=== PATIENT | female | born 1955 | race Caucasian/White ===

== ENCOUNTER 2018-01-24 17:32 | Emergency (ER) | payer BC ==
[2018-01-24 17:46] VITALS: BP 169/98
--- NOTE | 2018-01-24 18:02 | UC ---
Abdominal Pain Female HPI - HPI Summary HPI Summary: 62 year old woman 62-year-old woman here with a chief complaint of upper abdominal pain. She's been having the pain on and off for 2 days. Right now the pain is severe. He's nauseous she did vomit once that did not help the pain. No fevers. He said no prior abdominal surgeries. - History of Current Complaint Chief Complaint: UCAbdominalPain Stated Complaint: PAIN STOMACH Time Seen by Provider: 01/24/18 17:51 Pain Intensity: 7 Allergies/Adverse Reactions: Allergies Allergy/AdvReac Type Severity Reaction Status Date / Time No Known Allergies Allergy Verified 01/24/18 17:47 Home Medications: Home Medications NK [No Home Medications Reported] 01/24/18 [History Confirmed 01/24/18] PMH/Surg Hx/FS Hx/Imm Hx Previously Healthy: Yes - Surgical History Surgical History: None - Family History Known Family History: Positive: Non-Contributory - Social History Alcohol Use: None Substance Use Type: None Smoking Status (MU): Never Smoked Tobacco Review of Systems All Other Systems Reviewed And Are Negative: Yes Constitutional: Positive: Negative Skin: Positive: Negative Eyes: Positive: Negative ENT: Positive: Negative Respiratory: Positive: Negative Cardiovascular: Positive: Negative Gastrointestinal: Positive: Abdominal Pain, Vomiting, Nausea Motor: Positive: Negative Neurovascular: Positive: Negative Musculoskeletal: Positive: Negative Neurological: Positive: Negative Psychological: Positive: Negative Is Patient Immunocompromised?: No Physical Exam Triage Information Reviewed: Yes Appearance: Well-Nourished, Ill-Appearing - MODERATE, Pain Distress - MODERATE Vital Signs: Initial Vital Signs Temp 99.0 F 01/24/18 17:44 Pulse 74 01/24/18 17:44 Resp 16 01/24/18 17:44 BP 169/98 01/24/18 17:44 Pulse Ox 100 01/24/18 17:44 Vital Signs Reviewed: Yes Eye Exam: Normal Eyes: Positive: Conjunctiva Clear Neck exam: Normal Neck: Positive: Supple Respiratory: Positive: Lungs clear, Normal breath sounds, No respiratory distress, No accessory muscle use Cardiovascular: Positive: RRR Abdomen Description: Positive: Guarding, Other: - Patient's abdomen is tender all throughout the upper abdomen and the lower abdomen worst pain is in the epigastrium Bowel Sounds: Positive: Hypoactive Musculoskeletal Exam: Normal Musculoskeletal: Positive: Strength Intact, ROM Intact Neurological Exam: Normal Neurological: Positive: Alert, Muscle Tone Normal Psychological Exam: Normal Psychological: Positive: Age Appropriate Behavior Skin Exam: Normal Abd Pain Female Course/Dx - Differential Dx/Diagnosis Provider Diagnoses: ABDOMINAL PAIN. EPIGASTRIC PAIN Discharge - Sign-Out/Discharge Documenting (check all that apply): Patient Departure All imaging exams completed and their final reports reviewed: No Studies - Discharge Plan Condition: Stable Disposition: HOME-RECOMMEND TO ED Patient Education Materials: Acute Abdominal Pain (ED), Epigastric Pain (ED) Referrals: [facility] [Outside] Additional Instructions: GO DIRECTLY TO THE EMERGENCY DEPARTMENT FOR FURTHER EVALUATION. - Billing Disposition and Condition Condition: STABLE Disposition: Home-Recommend to ED
== END 2018-01-24 18:14 | disposition home health service (06) ==
LOC: UCEAST 17:32
DX: R10.13 Epigastric pain (principal)
CPT/HCPCS: 99202; G0463

== ENCOUNTER 2018-01-24 18:31 | Emergency (ER) | payer BC ==
[2018-01-24 21:25] LABS: ABS Basophils 0.1 10^3/ul (0-0.2); ABS Eosinophils 0 10^3/ul (0-0.6); ABS Lymphocytes 0.7 10^3/ul (1.0-4.8); ABS Monocytes 0.6 10^3/ul (0-0.8); ABS Neutrophils 9.8 10^3/ul (1.5-7.7); ABS Nucleated RBC 0.1 10^3/ul; Eosinophil % 0.1 % (0-6); Hematocrit 47 % (35-47); Hemoglobin 16.4 g/dl (12.0-16.0); Lymphocyte % 6.5 % (25-47); Mean Corpuscular HGB Conc 35 g/dl (31-36); Mean Corpuscular Hemoglobin 30 pg (27-31); Mean Corpuscular Volume 86 fL (80-97); Mean Platelet Volume 7.2 fL (7.4-10.4); Nucleated Red Blood Cells % 0.6; Platelet Count 440 10^3/ul (150-450); Red Blood Count 5.44 10^6/ul (4.00-5.40); Red Cell Distribution Width 13 % (10.5-15); White Blood Count 11.1 10^3/ul (3.5-10.8)
[2018-01-24 21:42] LABS: EGFR Non-African American 55.2 (>60)
--- NOTE | 2018-01-24 22:46 | ED ---
Abdominal Pain/Female - HPI Summary HPI Summary: This patient is a 62 year old F presenting to [facility] from [facility] with a chief complaint of waxing, wanning, and migratory abdominal pain beginning two nights ago. Patient reports after dinner to nights ago nausea and left sided abdominal pain developed that improved Friday morning, but returned at 1400 the next day with sharp right sided abdominal pain with nausea. Today abdominal pain is central and radiates to lateral upper abdomen. Pain is 8/10 at worst and 5/10 at best. Patient reports decreased appetite. Patient denies vomiting, diarrhea, back pain and known fever. - History of Current Complaint Chief Complaint: EDAbdPain Stated Complaint: ABD PAIN Time Seen by Provider: 01/24/18 22:37 Hx Obtained From: Patient ?: No Onset/Duration: Lasting Days Timing: Intermittent Episode Lasting Pain Intensity: 5 Pain Scale Used: 0-10 Numeric Location: Diffuse Radiates: Yes Radiates to: LLQ, RLQ Character: Sharp Associated Signs and Symptoms: Positive: Decreased Appetite, Nausea. Negative: Fever, Back Pain Allergies/Adverse Reactions: Allergies Allergy/AdvReac Type Severity Reaction Status Date / Time No Known Allergies Allergy Verified 01/24/18 17:47 PMH/Surg Hx/FS Hx/Imm Hx Cardiovascular History: Denies: Hx Coronary Artery Disease GI History: Denies: Hx Diverticulosis, Hx Ulcer EENT History: Denies: Hx Deafness - Surgical History Surgery Procedure, Year, and Place: DNC Hx Anesthesia Reactions: No Infectious Disease History: No Infectious Disease History: Denies: Traveled Outside the [place] in Last 30 Days - Family History Known Family History: Positive: Hypertension - Social History Alcohol Use: None Substance Use Type: Reports: None Smoking Status (MU): Never Smoked Tobacco Review of Systems Negative: Fever Gastrointestinal: Other - decreased appetite Positive: Abdominal Pain, Nausea. Negative: Vomiting, Diarrhea All Other Systems Reviewed And Are Negative: Yes Physical Exam - Summary Physical Exam Summary: Appearance: Well-appearing, Well-nourished, lying in bed comfortably Skin: Warm, dry, no obvious rash Eyes: sclera anicteric, no conjunctival pallor ENT: mucous membranes moist, pharynx appears normal Neck: Supple, nontender Respiratory: Clear to auscultation, no signs of respiratory distress Cardiovascular: Normal S1, S2. No murmurs. Normal distal pulses in tibial and radial bilaterally. Mildly tachycardic at 100 BPM Abdomen: Soft, diffuse tenderness without guarding or rebound, normal active bowel sounds present Musculoskeletal: Normal, Strength/ROM Intact Neurological: A&Ox3, awake and alert, mentation is normal, speech is fluent and appropriate Psychiatric: affect is normal, does not appear anxious or depressed Triage Information Reviewed: Yes Vital Signs On Initial Exam: Initial Vitals Temp Pulse Resp BP Pulse Ox 98.1 F 72 16 158/85 100 01/24/18 18:38 01/24/18 18:38 01/24/18 18:38 01/24/18 18:38 01/24/18 18:38 Vital Signs Reviewed: Yes Diagnostics - Vital Signs Vital Signs Temp Pulse Resp BP Pulse Ox 01/24/18 20:41 97.6 F 81 16 149/76 100 01/24/18 18:38 98.1 F 72 16 158/85 100 - Laboratory Lab Results: Lab Results 01/24/18 01/24/18 Range/Units 21:20 21:20 WBC 11.1 H (3.5-10.8) 10^3/ul RBC 5.44 H (4.00-5.40) 10^6/ul Hgb 16.4 H (12.0-16.0) g/dl Hct 47 (35-47) % MCV 86 (80-97) fL MCH 30 (27-31) pg MCHC 35 (31-36) g/dl RDW 13 (10.5-15) % Plt Count 440 (150-450) 10^3/ul MPV 7.2 L (7.4-10.4) fL Neut % (Auto) 87.7 H (38-83) % Lymph % (Auto) 6.5 L (25-47) % Grand % (Auto) 5.2 (0-7) % Eos % (Auto) 0.1 (0-6) % Baso % (Auto) 0.5 (0-2) % Absolute Neuts (auto) 9.8 H (1.5-7.7) 10^3/ul Absolute Lymphs (auto) 0.7 L (1.0-4.8) 10^3/ul Absolute Monos (auto) 0.6 (0-0.8) 10^3/ul Absolute Eos (auto) 0 (0-0.6) 10^3/ul Absolute Basos (auto) 0.1 (0-0.2) 10^3/ul Absolute Nucleated RBC 0.1 10^3/ul Nucleated RBC % 0.6 Sodium 137 (135-145) mmol/L Potassium 4.4 (3.5-5.0) mmol/L Chloride 104 (101-111) mmol/L Carbon Dioxide 24 (22-32) mmol/L Anion Gap 9 (2-11) mmol/L BUN 19 (6-24) mg/dL Creatinine 1.01 H (0.51-0.95) mg/dL Est GFR ( Amer) 66.8 (>60) Est GFR (Non-Af Amer) 55.2 (>60) BUN/Creatinine Ratio 18.8 (8-20) Glucose 147 H (70-100) mg/dL Calcium 10.2 (8.6-10.3) mg/dL Total Bilirubin 0.90 (0.2-1.0) mg/dL AST 15 (13-39) U/L ALT 14 (7-52) U/L Alkaline Phosphatase 98 (34-104) U/L Total Protein 8.0 (6.4-8.9) g/dL Albumin 4.5 (3.2-5.2) g/dL Globulin 3.5 (2-4) g/dL Albumin/Globulin Ratio 1.3 (1-3) Lipase 16 (11.0-82.0) U/L Result Diagrams: 01/24/18 21:20 01/24/18 21:20 Lab Statement: Any lab studies that have been ordered have been reviewed, and results considered in the medical decision making process. - CT CT A/P CT Interpretation Completed By: Radiologist - 1. No CT findings to correlate with patient's symptomatology. 2. 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 ACR White Paper guidelines (Jaci, et al. JACR 2010; 7(10):759-82) suggest that no further follow-up is necessary. ED Physician has reviewed this report. Abdominal Pain Fem Course/Dx - Course Course Of Treatment: 62 year old F presenting from [facility] with a chief complaint of waxing, wanning, and migratory abdominal pain beginning two nights ago. Patient reports after dinner to nights ago nausea and left sided abdominal pain developed that improved Friday morning, but returned at 1400 the next day with sharp right sided abdominal pain with nausea. Today abdominal pain is central and radiates to lateral upper abdomen. Patient reports decreased appetite. Patient denies vomiting, diarrhea, back pain and known fever. Patient is given IVF and Zofran. Bloodwork reveals 11.1. UA is indicative of UTI. CT A/P reveals, as per radiologist, "1. No CT findings to correlate with patient's symptomatology. 2. 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 ACR White Paper guidelines (Jaci,. et al. JACR 2010; 7(10):705-42) suggest that no further follow-up is necessary. ". Results discussed with patient. Patient will be discharged home with a prescription for Bactrim. Patienet is agreeable with this plan. - Diagnoses Provider Diagnoses: UTI (urinary tract infection), Abdominal pain Discharge - Sign-Out/Discharge Documenting (check all that apply): Patient Departure - discharge - Discharge Plan Condition: Good Disposition: HOME Prescriptions: Sulfamethox/Trimethoprim DS* [Bactrim DS 800/160 TAB*] 1 tab PO BID #14 tab Patient Education Materials: Urinary Tract Infection in Women (ED), Abdominal Pain (ED) [facility]errals: [facility] [Outside] Additional Instructions: If the culprit here is a urinary tract infection, as the urine test would suggest, your symptoms should start to carmen over the next couple of days. If you are not feeling much better by Friday - Billing Disposition and Condition Condition: GOOD Disposition: Home - Attestation Statements Document Initiated by Scribe: Yes Documenting Scribe: Nathalia Carroll Provider For Whom Iram is Documenting (Include Credential): Joshua Graves MD Scribe Attestation: INathalia, scribed for Joshua Graves MD on 01/26/18 at 0050. Scribe Documentation Reviewed: Yes Provider Attestation: The documentation as recorded by the Nathalia magallon accurately reflects the service I personally performed and the decisions made by me, Joshua Graves MD
[2018-01-24] MEDS ORDERED: Ondansetron ODT TAB* 4 MG SL ONE (23:03)
[2018-01-24] MEDS ORDERED: NS 0.9% 1000 ML* 2,000 ML IV ONE (23:03)
[2018-01-25] MEDS ORDERED: Iodixanol* (CONTRAST) 320 MG/ML 100 ML SDV IV ONE (00:40)
[2018-01-25 00:50] LABS: Urine Appearance Turbid; Urine Blood 1+ (Negative); Urine Color Amber; Urine Ketones 1+ (Negative); Urine Protein 2+(100 mg/dL) (Negative); Urine Red Blood Cell 1+(3-5/hpf) (Absent); Urine Specific Gravity 1.026 (1.010-1.030); Urine Urobilinogen Negative (Negative); Urine White Blood Cell 3+(>20/hpf) (Absent)
[2018-01-25] MEDS ORDERED: Sulfamethox/Trimethoprim DS 800/160* TAB PO ONE (01:49)
[2018-01-25 02:46] VITALS: BP 164/97
--- NOTE | 2018-01-28 08:09 | ED ---
Progress - Progress Note Progress Note: Patient's final urine culture reveals greater than 100,000 Escherichia coli. Patient was started on Bactrim to which organism is sensitive. No change in treatment at this time. Course/Dx - Course Course Of Treatment: 62 year old F presenting from [facility] with a chief complaint of waxing, wanning, and migratory abdominal pain beginning two nights ago. Patient reports after dinner to nights ago nausea and left sided abdominal pain developed that improved Friday morning, but returned at 1400 the next day with sharp right sided abdominal pain with nausea. Today abdominal pain is central and radiates to lateral upper abdomen. Patient reports decreased appetite. Patient denies vomiting, diarrhea, back pain and known fever. Patient is given IVF and Zofran. Bloodwork reveals 11.1. UA is indicative of UTI. CT A/P reveals, as per radiologist, "1. No CT findings to correlate with patient's symptomatology. 2. 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 ACR White Paper guidelines (Jaci,. et al. JACR 2010; 7(10):754-72) suggest that no further follow-up is necessary. ". Results discussed with patient. Patient will be discharged home with a prescription for Bactrim. Patienet is agreeable with this plan. - Diagnoses Provider Diagnoses: UTI (urinary tract infection), Abdominal pain Discharge - Sign-Out/Discharge Documenting (check all that apply): Post-Discharge Follow Up - Discharge Plan Condition: Good Disposition: HOME Prescriptions: Sulfamethox/Trimethoprim DS* [Bactrim DS 800/160 TAB*] 1 tab PO BID #14 tab Patient Education Materials: Urinary Tract Infection in Women (ED), Abdominal Pain (ED) Referrals: [facility] [Outside] Additional Instructions: If the culprit here is a urinary tract infection, as the urine test would suggest, your symptoms should start to carmen over the next couple of days. If you are not feeling much better by Friday - Billing Disposition and Condition Condition: GOOD Disposition: Home
== END 2018-01-25 02:05 | disposition home or self-care (01) ==
LOC: ED 18:31
DX: N39.0 Urinary tract infection, site not specified (principal); B96.20 Unspecified Escherichia coli [E. coli] as the cause of diseases classified elsewhere; R10.32 Left lower quadrant pain; R10.31 Right lower quadrant pain; R11.0 Nausea
CPT/HCPCS: 36415; 74177; 80053; 81003; 81015; 83690; 85025; 87077; 87086; 87186; 96360; 99283; A9270-GY; Q9967

== ENCOUNTER 2018-01-28 09:41 | Observation (INO) | payer BC ==
[2018-01-28] MEDS ORDERED: Ondansetron INJ* 2 MG/ML VIAL IV ONE (09:58)
[2018-01-28] MEDS ORDERED: NS 0.9% 1000 ML* 2,000 ML IV ONE (09:58)
[2018-01-28 10:34] LABS: ABS Basophils 0 10^3/ul (0-0.2); ABS Eosinophils 0.1 10^3/ul (0-0.6); ABS Lymphocytes 0.9 10^3/ul (1.0-4.8); ABS Monocytes 0.9 10^3/ul (0-0.8); ABS Neutrophils 7.9 10^3/ul (1.5-7.7); ABS Nucleated RBC 0 10^3/ul; Eosinophil % 0.6 %; Hematocrit 45 % (35-47); Hemoglobin 15.6 g/dl (12.0-16.0); Mean Corpuscular HGB Conc 35 g/dl (31-36); Mean Corpuscular Hemoglobin 30 pg (27-31); Mean Corpuscular Volume 87 fL (80-97); Mean Platelet Volume 7.4 fL (7.4-10.4); Nucleated Red Blood Cells % 0.2; Platelet Count 412 10^3/ul (150-450); Red Blood Count 5.17 10^6/ul (4.00-5.40); Red Cell Distribution Width 13 % (10.5-15); White Blood Count 9.7 10^3/ul (3.5-10.8)
--- NOTE | 2018-01-28 10:35 | ED ---
Abdominal Pain/Female - HPI Summary HPI Summary: Patient returns to ED with worsening of GI symptoms since being seen on 2017. During that visit, she received an abdominal pain workup and was diagnosed with UTI. She was started on Bactrim and microbiology reveals greater than 100,000 Escherichia coli. Unfortunately patient has only taken one dose since that visit as she has not been able to tolerate anything by mouth. She denies linda fevers or chills however has felt wiped out due to lack of fluids or any other oral intake for that matter. Ab pain today is about 2/10. She reports her symptoms started on 01/22/2018 while preparing Thanksgiving dinner. She started as "not feeling well" in general followed by lower ab cramping - thought she had early signs of a GI bug. This progressed to nausea. The following day she had a piece of toast in the morning and later that day she developed sharp abdominal pain in her left upper quadrant and then epigastric region. She has had a few episodes of vomiting with her nausea - nausea is constant and she has reduced appetite as a result. She also admits she had a bowel movement this morning with the help of a gallbladder cleanse initiated last night followed by enema this morning. Gallbladder cleanse include apple juice, lemon juice, olive oil and slippery alum tablets. The enema produced a yellowish bowel movement today. She reports no relief of constant pain but also had no acute symptoms throughout this process. Prior to this, denies normal BM since reduced PO intake - no diarrhea. Additionally, she denies sx such as urinary urgency, frequency, dysuria, flank pain although she admits she has had lower back soreness from lying around. Denies preceding diarrhea, intercourse, wiping back to front but she does report mild constipation. Other than U/A, labs were unremarkable for acute infection/inflammation and CT ab/pelvis only notable for 2.1cm hepatic lesion - no previous reports for comparison. - History of Current Complaint Chief Complaint: EDAbdPain Stated Complaint: UPPER GASTRIC PAIN/NAUSEA Time Seen by Provider: 01/28/18 09:49 Hx Obtained From: Patient, Family/Die Turner - female friend, RN Pain Intensity: 4 Allergies/Adverse Reactions: Allergies Allergy/AdvReac Type Severity Reaction Status Date / Time No Known Allergies Allergy Verified 01/28/18 09:48 Home Medications: Home Medications NK [No Home Medications Reported] 01/28/18 [History Confirmed 01/28/18] PMH/Surg Hx/FS Hx/Imm Hx Previously Healthy: Yes Endocrine/Hematology History: Reports: Hx Anemia - in past - took "tablets" - no issues since Denies: Hx Anticoagulant Therapy, Hx Blood Disorders, Hx Thyroid Disease, Autoimmune Disease Cardiovascular History: Denies: Hx Coronary Artery Disease GI History: Denies: Hx Cirrhosis, Hx Crohn's Disease, Hx Diverticulosis, Hx Gall Bladder Disease, Hx Gastroesophageal Reflux Disease, Hx Gastrointestinal Bleed, Hx Hiatal Hernia, Hx Irritable Bowel, Hx Obstructive Bowel, Hx Ulcer History: Reports: Other Problems/Disorders - UTI - has mild sx and is able to tx w/ cranberry juice Sensory History: Denies: Hx Deafness - Surgical History Surgery Procedure, Year, and Place: D&C Hx Anesthesia Reactions: No Infectious Disease History: No Infectious Disease History: Denies: Hx Clostridium Difficile, Hx Hepatitis, Traveled Outside the [place] in Last 30 Days - Family History Known Family History: Positive: Hypertension - Social History Occupation: Retired Lives: With Family - Alcohol Use: None Hx Substance Use: No Substance Use Type: Reports: None Hx Tobacco Use: No Smoking Status (MU): Never Smoked Tobacco Review of Systems Positive: Fatigue Eyes: Negative ENT: Negative Cardiovascular: Negative Respiratory: Negative Positive: Abdominal Pain, Vomiting, Nausea. Negative: Diarrhea Positive: see HPI Musculoskeletal: Other - low back pain Skin: Negative Positive: Headache - in the AM's. Negative: Weakness, Paresthesia, Numbness, Syncope, Slurred Speech Psychological: Normal All Other Systems Reviewed And Are Negative: Yes Physical Exam Triage Information Reviewed: Yes Vital Signs On Initial Exam: Initial Vitals Temp Pulse Resp BP Pulse Ox 97.2 F 124 16 135/81 98 01/28/18 09:43 01/28/18 09:43 01/28/18 09:43 01/28/18 09:43 01/28/18 09:43 Vital Signs Reviewed: Yes Appearance: Positive: No Pain Distress, Well-Nourished, Ill-Appearing - appears mildly fatigued Skin: Positive: Warm, Skin Color Reflects Adequate Perfusion, Dry - no ecchymosis over ab/flanks Head/Face: Positive: Normal Head/Face Inspection Eyes: Positive: Normal, EOMI, TERESO, Conjunctiva Clear - anicteric sclera, Other : - mucosa pink ENT: Positive: Normal ENT inspection, Hearing grossly normal, Pharynx normal - mucosa dry - tongue with whit coating, scalloped - no oral or lingular lesions. Negative: Nasal congestion, Nasal drainage Neck: Positive: Supple, Nontender, No Lymphadenopathy Respiratory/Lung Sounds: Positive: Clear to Auscultation, Breath Sounds Present. Negative: Rales, Rhonchi, Wheezes Cardiovascular: Positive: Tachycardia, S1, S2. Negative: Murmur, Rub, Leg Edema Left, Leg Edema Right Abdomen Description: Positive: No Organomegaly, Soft, Distended - mild, Other: - LUQ w/ mild TTP - LLQ, suprapubic region and RLQ TTP - RUQ NTTP. Negative: CVA Tenderness (R), CVA Tenderness (L), Guarding, McBurney's Point Tenderness, Pulsatile Mass Bowel Sounds: Positive: Present, Hypoactive Pelvic Exam: Positive: Other - DEFERRED Musculoskeletal: Positive: Normal, Strength/ROM Intact Neurological: Positive: Normal, Sensory/Motor Intact, Alert, Oriented to Person Place, Time, CN Intact II-III Psychiatric: Positive: Normal Diagnostics - Vital Signs Vital Signs Temp Pulse Resp BP Pulse Ox 01/28/18 09:43 97.2 F 124 16 135/81 98 - Laboratory Result Diagrams: 01/28/18 10:21 01/28/18 10:20 Lab Statement: Any lab studies that have been ordered have been reviewed, and results considered in the medical decision making process. Abdominal Pain Fem Course/Dx - Course Course Of Treatment: Pt presents w/ persistent ab pain and reduced appetite leading to lack of PO intake. She was dx'd on 01/24 w/ a UTI and micro confirmed >100,000 E. COLI. She has not been taking her bactrim d/t nausea. Had 1 x episode of RUQ pain referring to back and tried a gallbladder flush - had a yellowish BM as a result but no relief of pain or nausea. US: no acute findings. Labs today reveal elevated LFT's across the board - these were all WNL on 01/24. CRP in 40's. CT ab/pelvis from 01/24 reveals 2.1cm - benign w/o f/u. ECG: tachy sinus, 101bpm, no ST elevations. Diff dx: colicky gallbladder , biliary duct obstruction (low), hepatic lesion causing issues. Recommend admission w/ GI consult. IV tx of UTI. Reviewed micro which is pansensitive. Discussed w/ Dr. Amos who agrees to admit. Pt in stable condition at time of transition of care. - Diagnoses Provider Diagnoses: Nausea & vomiting, Abdominal pain, Elevated liver enzymes, UTI (urinary tract infection) Discharge - Sign-Out/Discharge Documenting (check all that apply): Patient Departure - Discharge Plan Condition: Stable Disposition: ADMITTED TO [facility] - Billing Disposition and Condition Condition: STABLE Disposition: Admitted to [facility]
[2018-01-28 10:51] LABS: EGFR Non-African American 40.9 (>60)
[2018-01-28 10:54] LABS: INR 0.92 (0.77-1.02)
[2018-01-28] MEDS ORDERED: cefTRIAXone(*) 1 GM in NS 0.9% 50 ML* 50 ML IVPB ONE (11:52)
--- NOTE | 2018-01-28 12:05 | ED ---
Progress - Progress Note Progress Note: A 62 y/o female was seen by Dr. Schroeder at 11:45. Her PE was remarkable with dry mucous membranes. She has not been able to eat or drink for five days. She has migratory abd pain with LFTs. Likely passing gallstones. The patient was recommended for admission and given a GI cosult. PE: Constitutional: Well-developed, Well-nourished, Alert. (-) Distressed Skin: Warm, Dry HENT: Normocephalic; Atraumatic, dry mucous membranes. Eyes: Conjunctiva normal Neck: Musculoskeletal ROM normal neck. (-) JVD, (-) Stridor, (-) Tracheal deviation Cardio: Rhythm regular, rate normal, Heart sounds normal; Intact distal pulses; The pedal pulses are 2+ and symmetric. Radial pulses are 2+ and symmetric. (-) Murmur Pulmonary/Chest wall: Effort normal. (-) Respiratory distress, (-) Wheezes, (-) Rales Abd: Soft, (-) epigastric tenderness, (-) Distension, (-) Guarding, (-) Rebound Musculoskeletal: (-) Edema Lymph: (-) Cervical adenopathy Neuro: Alert, Oriented x3 Psych: Mood and affect Normal Course/Dx - Course Course Of Treatment: A 62 y/o female was seen by Dr. Schroeder at 11:45. Her PE was remarkable with dry mucous membranes. She has not been able to eat or drink for five days. She has migratory abd pain with LFTs. Likely passing gallstones. The patient was recommended for admission and given a GI cosult. - Diagnoses Provider Diagnoses: Nausea & vomiting, Abdominal pain, Elevated liver enzymes, UTI (urinary tract infection) Discharge - Sign-Out/Discharge Documenting (check all that apply): Patient Departure - Discharge Plan Condition: Stable Disposition: ADMITTED TO [facility] - Attestation Statements Document Initiated by Scribe: Yes Documenting Scribe: Ronnie Brown Provider For Whom Iram is Documenting (Include Credential): Andrez Schroeder MD Scribe Attestation: Ronnie Bruner, scribed for Andrez Schrodeer MD on 01/28/18 at 2240. Status of Scribe Document: Ready
[2018-01-28] MEDS ORDERED: cefTRIAXone(*) 1 GM ADVAN/BAG ONE (13:12)
[2018-01-28] MEDS ORDERED: Ondansetron INJ* 2 MG/ML VIAL IV PRN (13:24)
[2018-01-28] MEDS ORDERED: Acetaminophen TAB* 325 MG PO PRN (13:24)
[2018-01-28] MEDS: NS 0.9% 1000 ML* 1,000 ML IV SCH (15:08)
[2018-01-28] MEDS: Heparin VIAL(*) 5000 UNITS/ML VIAL (FIVE THOUSAND) SUBCUT SCH ×2 (15:14→20:22)
[2018-01-28 16:32] LABS: Urine Appearance Clear; Urine Blood Negative (Negative); Urine Color Yellow; Urine Ketones 1+ (Negative); Urine Protein Negative (Negative); Urine Specific Gravity 1.018 (1.010-1.030); Urine Urobilinogen Positive (Negative)
--- NOTE | 2018-01-28 22:04 | HP ---
HISTORY AND PHYSICAL: DATE OF ADMISSION: 01/28/18 PROVIDER: eJssy Hernandez NP PRIMARY CARE PROVIDER: None. ATTENDING PHYSICIAN WHILE IN THE HOSPITAL: Berkley Amos DO * (dictated by Jessy Hernandez NP) CHIEF COMPLAINT: 1. Upper abdominal pain. 2. Nausea. HISTORY OF PRESENT ILLNESS: Ms. Vizcaino is a 62-year-old female with no significant past medical history who presented to the emergency room with complaints of upper GI pain, nausea that started after Thanksgiving dinner last and has progressively gotten worse. The patient was seen in the emergency room and diagnosed with a UTI. Unfortunately, she has been unable to take her antibiotic. Her culture did show E. coli of greater than 100,000 on . She reports that she took 1 dose of the antibiotic and has been unable to take any further dosing. The patient reports that she has had consistent nausea and has been unable to eat or drink anything since Friday. She does report she vomited once that was just foamy spit on Friday. She does report that she ate a piece of toast on Friday, but other than that, has not had any oral intake. She denies any fever or chills. Does report loss of appetite. Denies any chest pain or edema. Denies any cough, hemoptysis, or shortness of breath. She does report nausea and vomiting. No diarrhea. She does report upper abdominal pain that originally started on the left and radiated to the right side. There has been no gross hematuria or dysuria. No focal weakness. No visual complaints. No dysphagia. No arthralgias or myalgias. No skin rashes or lesions. No depression or anxiety. The patient also reports that she had a gallbladder cleanse yesterday, which consisted of apple juice, lemon juice, olive oil, and slippery elm tablets. She also reports decrease in bowel movements since the decreased intake. She does report she had a bowel movement today that was yellowish brown. She denies any urinary symptoms. Denies any frequency or urgency. Given her constant nausea, unable to tolerate p.o. fluids and upper abdominal pain, we were asked to see and evaluate her by the emergency room. PAST MEDICAL HISTORY: None. PAST SURGICAL HISTORY: History of D and C. MEDICATIONS: None. ALLERGIES TO MEDICATIONS: No known drug allergies. FAMILY HISTORY: No reported cardiac or diabetes. She does report her sister with a history of breast cancer. SOCIAL HISTORY: The patient denies any tobacco, alcohol, or illicit drug use. She is . Surrogate decision maker in the event she is unable to make her own decisions is her , Roger Vizcaino. She is a full code. REVIEW OF SYSTEMS: There is no documented fever. She does report decreased appetite. There has been no double vision. No ear discharge. No rhinorrhea. No sore throat. She denies any chest pain. She denies any orthopnea or nocturnal dyspnea. She does report upper abdominal pain that radiated that started on the left and now is on the right, across her upper abdomen. She does complain of suprapubic tenderness with palpation. She denies any urinary frequency or urgency. No loss of consciousness. No pruritus or skin ulcerations. A review of 14 systems was completed and all others are negative. PHYSICAL EXAMINATION GENERAL: At this time, Ms. Vizcaino is a 62-year-old female. She appears alert and oriented, sitting on the stretcher in the emergency room. She does not appear to be in any acute distress. VITAL SIGNS: Blood pressure 130/81, heart rate is 90, temperature 97.2, respirations are 18. HEENT: Head is atraumatic, normocephalic. Eyes: EOMs are intact. Sclerae anicteric and not pale. Oral mucosa is dry. NECK: Supple. LUNGS: Clear to auscultation bilaterally. No wheezes, rales, or rhonchi. CARDIAC: S1, S2. Regular rate and rhythm. No murmurs, rubs, or gallops. ABDOMEN: Soft, flat. She does have suprapubic tenderness with palpation. Bowel sounds are present x4. EXTREMITIES: Pulses are +2 bilaterally. She is able to move all 4 extremities with 5/5 strength. NEUROLOGIC: She is awake, alert, oriented x3. Speech is clear. There are no gross focal deficits. SKIN: Intact, dry. She does have tenting. No rashes or lesions. DIAGNOSTIC STUDIES AND LABORATORY DATA: WBCs were 9.7, RBCs 5.17, hemoglobin 15.6, hematocrit 45, platelet count was 412,000. INR was 0.92, APTT was 31.5. Sodium 135, potassium 3.8, chloride 105, carbon dioxide was 21, anion gap was 9 , BUN was 19, creatinine 1.31, glucose 120. Lactic acid 1.1. Calcium 9.5. Magnesium 2.2. Total bili was 1.40. ASTs were 65, ALTs were 72, alkaline phosphatase was 123. C-reactive protein 42.49. Lipase 26. Urine is currently pending. Electrocardiogram showed sinus tachycardia at a rate of 101. Gallbladder ultrasound, radiologist's impression: Normal examination of the gallbladder, no evidence of acute findings. ASSESSMENT AND PLAN: Ms. Vizcaino is a 62-year-old female with no significant past medical history who presented to the emergency room today for evaluation of upper abdominal pain and nausea and inability to tolerate p.o. food and fluids. She will be admitted under observation for: 1. Upper abdominal pain. I suspect this could be related to her gallbladder. She did have a gallbladder ultrasound that did not show any stones or duct dilation and was within normal limits. I ordered a HIDA scan to evaluate the function of her gallbladder as the patient continues to complain of nausea and upper abdominal pain. I suspect this also could be related to her untreated urinary tract infection with E. coli of greater than 100,000. She only took 1 tablet of Bactrim that was prescribed to her on 01/24/18. This also could be playing a role in her symptoms of nausea. She currently has a urinalysis that is currently pending. We will continue with IV hydration as the patient does appear to be dehydrated; normal saline at 125 cc per hour for 2 more liters. She did receive 2 L in the emergency room. I will obtain orthostatic vital signs after completion of the 2 L in the emergency room. 2. Dehydration. We will continue with IV hydration and normal saline at 125 cc per hour. We will continue with Zofran 4 mg q.4 hours as needed for nausea. We will continue to monitor her fluids. 3. Acute kidney injury. She does have an elevated creatinine of 1.31. I suspect this is related to dehydration. We will repeat a BMP in the a.m. to evaluate her creatinine level. 4. FEN. She can have clear liquid diet after her HIDA scan. 5. DVT prophylaxis. I will place her on heparin subcu. 6. Code status. She is a full code. TIME SPENT: Time spent on this admission was 60 minutes, greater than half this time was spent with the patient obtaining my history and physical, the other half of the time was spent going over my plan of care and implementing my plan of care. I have discussed with my attending, Dr. Berkley Amos, she is in agreement with my plan. JESSY HERNANDEZ, DAT[employer] CONSULTANT [id number]/[facility] #: [id number] YUNIEL
[2018-01-29] MEDS: NS 0.9% 1000 ML* 1,000 ML IV SCH (02:02)
[2018-01-29] MEDS: Heparin VIAL(*) 5000 UNITS/ML VIAL (FIVE THOUSAND) SUBCUT SCH (05:09)
[2018-01-29 08:15] LABS: ABS Basophils 0.1 10^3/ul (0-0.2); ABS Eosinophils 0.2 10^3/ul (0-0.6); ABS Lymphocytes 1.2 10^3/ul (1.0-4.8); ABS Monocytes 0.7 10^3/ul (0-0.8); ABS Neutrophils 2.5 10^3/ul (1.5-7.7); ABS Nucleated RBC 0 10^3/ul; Eosinophil % 3.5 %; Hematocrit 37 % (35-47); Hemoglobin 12.6 g/dl (12.0-16.0); Lymphocyte % 26.3 %; Mean Corpuscular HGB Conc 34 g/dl (31-36); Mean Corpuscular Hemoglobin 30 pg (27-31); Mean Corpuscular Volume 88 fL (80-97); Mean Platelet Volume 7.3 fL (7.4-10.4); Nucleated Red Blood Cells % 0.1; Platelet Count 320 10^3/ul (150-450); Red Blood Count 4.15 10^6/ul (4.00-5.40); Red Cell Distribution Width 13 % (10.5-15); White Blood Count 4.6 10^3/ul (3.5-10.8)
[2018-01-29 08:27] LABS: EGFR Non-African American 56.5 (>60)
--- NOTE | 2018-01-29 10:20 | PN ---
Subjective Date of Service: 01/29/18 Interval History: Ms. Vizcaino reports feeling better today. She has minimal abdominal pain and denies nausea. She is interested in advancing her diet for lunch. She denies dysuria or frequency. She is hopeful for discharge to home. Objective Active Medications: Acetaminophen (Tylenol Tab*) 650 mg PO Q4H PRN Heparin Sodium (Porcine) (Heparin Vial(*)) 5,000 units SUBCUT Q8HR KYRA Sodium Chloride (Ns 0.9% 1000 Ml*) 1,000 mls @ 125 mls/hr IV PER RATE KYRA Ondansetron HCl (Zofran Inj*) 4 mg IV Q4H PRN Vital Signs: Temp Pulse Resp BP Pulse Ox 97.5 F 64 16 100/60 100 01/29/18 07:24 01/29/18 07:24 01/29/18 08:00 01/29/18 07:36 01/29/18 07:24 Oxygen Devices in Use Now: None Appearance: Female sitting up in bed in NAD Eyes: No Scleral Icterus Ears/Nose/Mouth/Throat: Mucous Membranes Moist Neck: Trachea Midline Respiratory: Symmetrical Chest Expansion and Respiratory Effort, Clear to Auscultation Extremities: No Edema Skin: No Rash or Ulcers Neurological: Alert and Oriented x 3, NL Muscle Strength and Tone Nutrition: Taking PO's Result Diagrams: 01/29/18 07:59 01/29/18 07:59 Assess/Plan/Problems-Billing Assessment: Ms. Vizcaino is a 62 yo F with a PMH of recent diagnosis with UTI who was admitted on 01/28/18 with right upper quadrant pain associated with nausea and vomiting with inability to tolerate oral abx for UTI. - Patient Problems (1) UTI (urinary tract infection) Comment: - UA negative, no leukocytosis or fever, no dysuria or frequency - No indication for further antibiotics (2) Right upper quadrant pain Comment: - Resolved - HIDA scan negative, GB US negative - ? Viral illness (3) Nausea & vomiting Comment: - Resolved - ? viral illness - No other etiology idenified. Negative workup for GB disease, CT abd negative. (4) DVT prophylaxis Comment: - Heparin SQ (5) Full code status Comment: Status and Disposition: OBV. Discharge to home.
[2018-01-29 14:01] VITALS: BP 110/67
--- NOTE | 2018-01-30 05:24 | DS ---
HOSPITAL MEDICINE DISCHARGE SUMMARY: DATE OF ADMISSION: 01/28/18 DATE OF DISCHARGE: 01/29/18 PRIMARY CARE PHYSICIAN: None. ATTENDING PHYSICIAN: Dr. Veronica Silva * (dictation provided by Marilin Young NP ). PRIMARY DIAGNOSIS: Abdominal pain associated with some nausea and vomiting with question of viral gastroenteritis. SECONDARY DIAGNOSIS: None. MEDICATIONS AT THE TIME OF DISCHARGE: None. HOSPITAL COURSE: Ms. Vizcaino is a 62-year-old female with no significant past medical history, who presented to the hospital on 01/28/18, with concern for abdominal pain and nausea with some vomiting. Please see the dictated H and P from Jessy Hernandez NP, for complete details. In brief, the patient stated that she had been seen in our emergency room on 01/24/18, for similar complaint. At that time, she had urinalysis, which was positive and ultimately grew E. coli greater than 100,000 colonies. For this, she was treated with Bactrim; however, because of the nausea and vomiting, she was only able to take 1 dose. Based on her constant nausea and an unclear etiology for her abdominal pain with a question of possible cholecystitis based on the location of pain and very mild elevation of the LFTs, the patient was admitted to the hospital for observation. I will note that Ms. Vizcaino did have an abdomen and pelvis CT on 01/24/18 at her last ED visit, that did include intravenous contrast, which showed no CT findings to correlate with the patient's symptomatology. 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 The reminder of her workup has included a gallbladder ultrasound, which showed normal examination of the gallbladder and no evidence of acute finding. They went on for a HIDA scan, which showed "normal hepatobiliary scan with no evidence of cystic duct dysfunction." Ms. Vizcaino had labs, which were unremarkable. She had a repeat urinalysis, which showed no evidence of urinary tract infection. She did receive a dose of ceftriaxone in the emergency room. Her vitals have remained stable. She has been tolerating her oral intake. Ms. Vizcaino is medically stable for discharge to home. It seems that her symptoms are resolving spontaneously. It is unclear what was driving those symptoms in the first place. She does not appear at this time to have urinary tract infection and quite frankly denies ever having dysuria or frequency during this bout. She has no evidence of kidney stones. She has no evidence of gallstones or cholecystitis, a question whether or not these symptoms might be related to acute gastroenteritis, but regardless at this point her workup is negative and her symptoms have resolved. I have encouraged to her to consider followup perhaps with the [facility] if she is unable to follow up with her primary care physician and I provided her with that number. TIME SPENT: Approximately 60 minutes was spent on the discharge of this patient , more than half the time was spent with the patient at the bedside reviewing the events leading up to this hospitalization, performing the physical examination, and reviewing my plan of care. MARILIN YOUNG NP [id number]/[facility] #: [id number] YUNIEL
== END 2018-01-29 15:25 | disposition home or self-care (01) ==
LOC: ED 09:41 → MED 13:24
PROVIDERS: ADMIT Internal Medicine; ATTEND Internal Medicine
DX: R10.11 Right upper quadrant pain (principal); R11.2 Nausea with vomiting, unspecified; A08.4 Viral intestinal infection, unspecified; R51 Headache; R53.83 Other fatigue; N39.0 Urinary tract infection, site not specified
CPT/HCPCS: 36415; 76705; 78226; 80048; 80053; 81003; 83605; 83690; 83735; 85025; 85610; 85730; 86140; 87040; 93005; 96361; 96365; 96366; 96375; 96376; 99283; A9537; G0378; J0696; J2405